=== PATIENT | female | born 1965 | race Caucasian/White ===

== ENCOUNTER → 2025-01-02 | Outpatient (CLI) | payer MEDICAID, SELFPAY ==
--- NOTE | 2025-01-02 16:17 | XR_ITS ---
EXAMINATION: Ankle, right 3 views . Technique: Ankle AP, oblique, lateral 3 views Date and time of exam: January 02, 2025 1620 hours INDICATIONS: Patient fell 5 days ago with injury to the ankle, ankle pain. FINDINGS: Lateral malleolar soft tissue swelling Old bone density at the fibular tip No acute fracture IMPRESSION: No acute fracture Repeat this study short-term as clinically warranted
--- NOTE | 2025-01-02 16:17 | XR_ITS ---
Examination: Left elbow 3 views Technique: Elbow AP, oblique, lateral 3 views Exam date and time: January 02, 2025 1620 hours INDICATIONS: Patient fell 5 days ago with injured the elbow, elbow pain. FINDINGS: Nondisplaced fracture radial head and neck No dislocation Large elbow effusion IMPRESSION: Nondisplaced acute fracture radial head and neck
== END | disposition home or self-care (01) ==
LOC: CDIM 16:10
PROVIDERS: PCP Nurse Practitioner Family; Referring Provider Nurse Practitioner Family; Visit Provider Nurse Practitioner Family
DX: S99.911A Unspecified injury of right ankle, initial encounter (principal); S52.125A Nondisplaced fracture of head of left radius, initial encounter for closed fracture; S52.135A Nondisplaced fracture of neck of left radius, initial encounter for closed fracture; W18.2XXA Fall in (into) shower or empty bathtub, initial encounter
CPT/HCPCS: 73080; 73610